=== PATIENT | female | born 1985 | race Caucasian/White ===

== ENCOUNTER 2019-10-30 02:03 | Emergency (ER) | payer OTHER ==
[~2019-10-30] VITALS: Ht 160 cm; Wt 61.2 kg
[2019-10-30] MEDS ORDERED: AZITHROMYCIN 250 MG TABLET PO ONE (02:30)
[2019-10-30] MEDS ORDERED: AZITHROMYCIN 250 MG TABLET ONE (02:32)
[2019-10-30 02:37] VITALS: BP 149/99
--- NOTE | 2019-10-30 02:37 | NUR ---
Patient discharged to home in stable conditon. Written and verbal after care instructions given. Patient verbalizes understanding of instructions. Walked out of ER with no distress noted.
== END 2019-10-30 02:37 | disposition home or self-care (01) ==
LOC: ER 02:22
DX: J02.9 Acute pharyngitis, unspecified (principal)
CPT/HCPCS: A4663; Q0144

== ENCOUNTER 2019-12-13 01:14 | Emergency (ER) | payer OTHER ==
[~2019-12-13] VITALS: Ht 162.6 cm; Wt 63.5 kg
[2019-12-13] MEDS ORDERED: predniSONE 20 MG TABLET PO ONE (01:30)
[2019-12-13] MEDS ORDERED: GUAIFENESIN/CODEINE 5 ML LIQUID UDC PO ONE (01:30)
[2019-12-13] MEDS ORDERED: GUAIFENESIN/CODEINE 5 ML LIQUID UDC ONE (01:33)
[2019-12-13] MEDS ORDERED: predniSONE 20 MG TABLET ONE (01:33)
--- NOTE | 2019-12-13 02:05 | NUR ---
Patient discharged to home in stable conditon. Written and verbal after care instructions given. Patient verbalizes understanding of instructions. Patient ambulating with steady gait. NAD noted. Patient's family outside of ED to take patient home
[2019-12-13 02:07] VITALS: BP 136/88
== END 2019-12-13 02:05 | disposition home or self-care (01) ==
LOC: ER 01:17
DX: J20.9 Acute bronchitis, unspecified (principal)
CPT/HCPCS: 71045; 87400; 99284; J7512; A4663

== ENCOUNTER 2020-10-14 03:02 | Emergency (ER) | payer OTHER ==
[~2020-10-14] VITALS: Ht 160 cm; Wt 61.2 kg
--- NOTE | 2020-10-14 03:22 | NUR ---
Dr. Avery at bedside for MSE.
--- NOTE | 2020-10-14 03:49 | NUR ---
Patient discharged to home in stable condition. Written and verbal after care instructions given. Patient verbalizes understanding of instructions. Stressed follow up or return to ER for worsening s/s. Patient out of ER with steady gait, no acute signs of distress, VSS, all belongings taken.
[2020-10-14 03:50] VITALS: BP 143/96
== END 2020-10-14 03:50 | disposition home or self-care (01) ==
LOC: ER 03:11
DX: U07.1 COVID-19 (principal)
CPT/HCPCS: 99283; U0003; A4663

== ENCOUNTER 2022-01-20 10:59 | Emergency (ER) | payer OTHER ==
[~2022-01-20] VITALS: Ht 160 cm; Wt 59.0 kg
[2022-01-20] MEDS ORDERED: HYDROCODONE/APAP 5-325MG TABLET ONE (11:57)
[2022-01-20] MEDS ORDERED: HYDROCODONE/APAP 5-325MG TABLET PO ONE (12:00)
--- NOTE | 2022-01-20 12:00 | NUR ---
Patient was seen by MD, xrays done, splint applied. DC and follow up instructions given and explained to patient who states she understands all isntructions
== END 2022-01-20 12:18 | disposition home or self-care (01) ==
LOC: ER 10:59
DX: S62.663A Nondisplaced fracture of distal phalanx of left middle finger, initial encounter for closed fracture (principal); W23.0XXA Caught, crushed, jammed, or pinched between moving objects, initial encounter; Y92.89 Other specified places as the place of occurrence of the external cause
CPT/HCPCS: 73140; A4663

== ENCOUNTER 2023-11-26 02:30 | Emergency (ER) | payer OTHER ==
[~2023-11-26] VITALS: Ht 160 cm; Wt 68.0 kg
[2023-11-26 03:27] LABS: BASOPHILS % (AUTO) 0.6 % (0.0-2.0); EOSINOPHILS # (AUTO) 0.2 K/uL (0.0-0.7); EOSINOPHILS % (AUTO) 3.3 % (0.0-7.0); HEMATOCRIT 34.2 % (31.2-41.9); HEMOGLOBIN 11.4 g/dL (10.9-14.3); LYMPHOCYTES # (AUTO) 2.6 K/uL (0.8-4.8); LYMPHOCYTES % (AUTO) 35.2 % (20.5-51.5); MEAN CORPUSCULAR HEMOGLOBIN 27.8 uug (24.7-32.8); MEAN CORPUSCULAR HGB CONC 33 g/dL (32.3-35.6); MEAN CORPUSCULAR VOLUME 83.4 fL (75.5-95.3); MONOCYTES # (AUTO) 0.7 K/uL (0.1-1.30); MONOCYTES % (AUTO) 9.4 % (0.0-11.0); NEUTROPHILS # (AUTO) 3.8 K/uL (1.8-8.9); NEUTROPHILS % (AUTO) 51.5 % (38.5-71.5); PLATELET COUNT (AUTO) 348 K/uL (179-408); RED BLOOD CELL COUNT(AUTO) 4.11 MIL/uL (3.63-4.92); WHITE BLOOD COUNT (AUTO) 7.5 K/uL (3.8-11.8)
[2023-11-26 03:46] LABS: ALBUMIN 3.5 g/dL (3.4-5.0); BILIRUBIN,TOTAL 0.3 mg/dL (0.2-1.0); CREATININE 0.8 mg/dL (0.6-1.3); POTASSIUM 3.3 mmol/L (3.5-5.1); TOTAL PROTEIN, SERUM 7.4 g/dL (6.4-8.2)
[2023-11-26 04:00] LABS: DIFFERENTIAL COMMENT 1
[2023-11-26 04:05] LABS: CALCIUM 8.7 mg/dL (8.5-10.1)
[2023-11-26 04:47] VITALS: BP 120/81; O2SAT 100
== END 2023-11-26 04:47 | disposition home or self-care (01) ==
LOC: ER 02:33
DX: O03.9 Complete or unspecified spontaneous abortion without complication (principal); R10.2 Pelvic and perineal pain
CPT/HCPCS: 36415; 76856; 85025; 85610; 86850; 86900; 86901; A4606; A4663